=== PATIENT | female | born 2000 | race Caucasian/White ===

== ENCOUNTER 2023-04-24 22:02 | Emergency (ER) | payer MEDICAID ==
[~2023-04-24] VITALS: Ht 160 cm; Wt 105.2 kg
[2023-04-24 22:06] VITALS: BP 158/92
[2023-04-24] MEDS ORDERED: LIDOcaine Viscous 15ml cup MM ONE (23:30)
[2023-04-24] MEDS ORDERED: mag hydrox/Alum hydrox/simeth 30ml oral suspension PO ONE (23:30)
--- NOTE | 2023-04-24 23:58 | NUR ---
PO CHALLENGE MET. PT ABLE TO DRINK FLUIDS WITHOUT VOM OR COMPLICATION. AIRWAY IS PATENT. PROVIDER NOTIFIED.
== END 2023-04-25 00:07 | disposition home or self-care (01) ==
LOC: ER 22:03
DX: R13.10 Dysphagia, unspecified (principal)
CPT/HCPCS: 99283